=== PATIENT | male | born 1985 | race African-American/Black ===

== ENCOUNTER 2019-06-28 11:20 | Emergency (ER) | payer MEDICAID, OTHER ==
[~2019-06-28] VITALS: Ht 180.3 cm; Wt 118.0 kg
[2019-06-28] MEDS ORDERED: KETOROLAC 60MG/2ML VIAL IM STA (14:28)
[2019-06-28 15:10] VITALS: BP 145/90
== END 2019-06-28 15:12 | disposition home or self-care (01) ==
LOC: ER 11:20
DX: K02.9 Dental caries, unspecified (principal); K04.7 Periapical abscess without sinus
CPT/HCPCS: 96372; 99283; J1885